=== PATIENT | male | born 1975 | race Caucasian/White ===

== ENCOUNTER 2018-01-19 08:14 | Day surgery (SDC) | payer BC ==
[~2018-01-19] VITALS: Ht 180.3 cm; Wt 111.1 kg
[2018-01-19] MEDS ORDERED: fentaNYL CITRATE/PF 100 MCG/2 ML AMP IVP PRN ×2 (10:15)
[2018-01-19] MEDS ORDERED: ONDANSETRON HCL 4 MG/2 ML VIAL IVP PRN (10:15)
[2018-01-19] MEDS ORDERED: NS IRRIG SOLN 1000 ML IR ONE (12:45)
[2018-01-19] MEDS ORDERED: PROPOFOL 200MG/ 20ML VIAL (DIPRIVAN) IV ONE (12:45)
[2018-01-19] MEDS ORDERED: GLYCOPYRROLATE 0.2 MG/ML VIAL ONE (12:45)
[2018-01-19] MEDS ORDERED: SEVOFLURANE 15 MIN GAS INH ONE (12:45)
[2018-01-19] MEDS ORDERED: ROCURONIUM BROMIDE 10 MG/ML (ZEMURON) ONE (12:45)
[2018-01-19] MEDS ORDERED: NEOSTIGMINE METHYLSULFATE 1 MG/ML, 10 ML VIAL ONE (12:45)
[2018-01-19] MEDS ORDERED: WATER FOR IRRIGATION,STERILE 1,000 ML IRRIG.SOLN IR ONE (12:45)
[2018-01-19] MEDS ORDERED: EPINEPHrine 1 MG/ML AMP ONE (12:45)
[2018-01-19] MEDS ORDERED: LIDOCAINE 2%, 20 ML MDV ONE (12:45)
[2018-01-19] MEDS ORDERED: MIDAZOLAM HCL 5 MG/ML VIAL (VERSED) IV ONE (12:45)
[2018-01-19] MEDS ORDERED: OXYMETAZOLINE HCL 0.05% NASAL SPRAY NS ONE (12:45)
[2018-01-19] MEDS ORDERED: ONDANSETRON HCL 4 MG/2 ML VIAL ONE (12:45)
[2018-01-19] MEDS ORDERED: DEXAMETHASONE SOD PHOSPHATE 4 MG/ML VIAL ONE (12:45)
[2018-01-19] MEDS ORDERED: fentaNYL CITRATE/PF 100 MCG/2 ML AMP ONE (12:45)
[2018-01-19] MEDS ORDERED: LR 1,000 ML IV.SOLN IV ONE (12:45)
[2018-01-19 13:28] VITALS: BP_SYST 125
== END 2018-01-19 15:05 | disposition home or self-care (01) ==
LOC: SDS 08:14 → SMU 09:27 → SDS 15:05
PROVIDERS: ATTEND Otolaryngology
DX: J34.2 Deviated nasal septum (principal); J32.4 Chronic pansinusitis; H68.101 Unspecified obstruction of Eustachian tube, right ear; J34.89 Other specified disorders of nose and nasal sinuses; J32.8 Other chronic sinusitis
CPT/HCPCS: 30140; 30520; 31255; 31256; 88305; 88311; J0171; J1100; J2001; J2250; J2405; J2704; J2710; J3010; J3490; J7120

== ENCOUNTER 2018-01-20 13:57 | Emergency (ER) | payer BC ==
[~2018-01-20] VITALS: Ht 182.9 cm; Wt 108.9 kg
--- NOTE | 2018-01-20 14:06 | NUR ---
Patient to ER bed 5 to gown for evaluation. Side rails up. Triaged at bedside by Aiden CAMPOVERDE.
--- NOTE | 2018-01-20 14:10 | NUR ---
Pt presents to ER c/o discomfort to back of throat s/p septoplasty which he had done yesterday. Pt denies pain but complains he feels "something is in the back of my throat". Pt denies any other symptoms, in no acute distress, speaking full sentences, aox4.
[2018-01-20 14:17] VITALS: BP_SYST 123
--- NOTE | 2018-01-20 14:39 | NUR ---
ER at bedside examining patient.
[2018-01-20 15:05] VITALS: BP_SYST 123
--- NOTE | 2018-01-20 15:05 | NUR ---
Patient given written and verbal discharge instructions and verbalizes understanding. ER MD discussed with patient the results and treatment provided. Patient in stable condition. ID arm band removed. No Rx given. Patient educated on pain management and to follow up with PMD. Pain Scale 0/10. Opportunity for questions provided and answered. Medication side effect fact sheet provided.
== END 2018-01-20 15:05 | disposition home or self-care (01) ==
LOC: SED 13:57
DX: T81.89XA Other complications of procedures, not elsewhere classified, initial encounter (principal); R03.0 Elevated blood-pressure reading, without diagnosis of hypertension; Y83.8 Other surgical procedures as the cause of abnormal reaction of the patient, or of later complication, without mention of misadventure at the time of the procedure; Y82.8 Other medical devices associated with adverse incidents
CPT/HCPCS: 99281